=== PATIENT | female | born 1995 | race Caucasian/White ===

== ENCOUNTER 2019-10-05 18:18 | Emergency (ER) | payer MEDICAID ==
[~2019-10-05] VITALS: Ht 165.1 cm; Wt 89.1 kg
[2019-10-05 18:25] VITALS: BP 134/90
[2019-10-05 19:15] LABS: URINE HCG NEGATIVE (NEG)
--- NOTE | 2019-10-05 19:15 | NUR ---
pt is 24 yo female c/o n/v/d, generalized body aches since 399 today, LMP 09/23, also had control removed from left upper arm that day, , waiting to be evaluated by provider
[2019-10-05 19:16] LABS: CLARITY,URINE CLEAR (Clear); COLOR,URINE YELLOW (Yellow); GLUCOSE, URINE NEGATIVE (Neg); KETONES,URINE 15 mg/dl (Neg); LEUKOCYTE ESTERASE ,URINE TRACE (Neg); NITRITES, URINE NEGATIVE (Neg); OCCULT BLOOD,URINE LARGE (Neg); PH,URINE 5.5 (4.8-8.0); PROTEIN,URINE TRACE mg/dl (Neg); UROBILINOGEN,URINE 0.2 E.U/dL (0.2-1.0)
[2019-10-05 19:25] LABS: BACTERIA,URINE 1+ /HPF (Neg); UA COLLECTION TYPE CLN CATCH MIDSTREAM; WBC,URINE 0-4 /HPF (0-4)
[2019-10-05 19:26] LABS: SQUAMOUS EPITHELIAL CELL,UR MODERATE /LPF (FEW)
[2019-10-05] MEDS ORDERED: CEPH500C5 PO (19:34)
[2019-10-05] MEDS ORDERED: ONDA4TAB6 PO (19:34)
[2019-10-05] MEDS ORDERED: ondansetron 4mg rapidly disintigrating tab PO ONE (19:40)
== END 2019-10-05 19:52 | disposition home or self-care (01) ==
LOC: ER 18:18
DX: A08.4 Viral intestinal infection, unspecified (principal); N39.0 Urinary tract infection, site not specified; Z79.899 Other long term (current) drug therapy
CPT/HCPCS: 81001; 81025; 87088; 99283

== ENCOUNTER 2020-01-20 11:28 | Emergency (ER) | payer MEDICAID ==
[~2020-01-20] VITALS: Ht 165.1 cm; Wt 88.0 kg
[~2020-01-20 11:28] MED LIST: ONDA4TAB6 PO
== END 2020-01-20 12:37 | disposition home or self-care (01) ==
LOC: ER 11:28
DX: U07.1 COVID-19 (principal); R05 Cough; R11.0 Nausea; R53.83 Other fatigue; R09.89 Other specified symptoms and signs involving the circulatory and respiratory systems; Z79.899 Other long term (current) drug therapy
CPT/HCPCS: 36415; 87635; 99283